=== PATIENT | male | born 1985 | race Caucasian/White ===

== ENCOUNTER 2022-03-29 11:21 | Day surgery (SDC) | payer OTHER ==
[~2022-03-29] VITALS: Ht 175.3 cm; Wt 86.8 kg
[2022-03-29] MEDS ORDERED: CLIN-250 PO (11:38)
[2022-03-29] MEDS ORDERED: ONDANSETRON 4MG 2ML VIAL IV ONE (12:10)
[2022-03-29] MEDS: MORPHINE 4 MG/ML 1ML VIAL/SYRINGE IV PRN ×2 (12:23→12:58)
[2022-03-29 13:19] LABS: RSV AMPLIFICATION NEGATIVE (NEGATIVE)
[2022-03-29] MEDS ORDERED: MORPHINE 4 MG/ML 1ML VIAL/SYRINGE IV PRN (14:30)
[2022-03-29] MEDS ORDERED: PERI12LIQ SSP (15:25)
[2022-03-29] MEDS ORDERED: HOME MED LIST COMPLETE! XX SCH (15:30)
[2022-03-29] MEDS ORDERED: LIDOCAINE 2% 100MG/5ML SDV (FOR ANES.) As Ordered ONE (15:44)
[2022-03-29] MEDS ORDERED: propofoL 200 MG/20 ML VIAL As Ordered ONE (15:44)
[2022-03-29] MEDS ORDERED: fentaNYL 250 MCG/5 ML INJECTION As Ordered ONE (15:45)
[2022-03-29] MEDS ORDERED: MIDAZOLAM INJ 2MG/2ML VIAL (J2250 PER 1MG) As Ordered ONE (15:45)
[2022-03-29] MEDS ORDERED: BACITRACIN OINTMENT 30GM TUBE As Ordered ONE (15:55)
[2022-03-29] MEDS ORDERED: BUPIVACAINE HCL 0.25% 30ML VIAL As Ordered ONE (15:55)
[2022-03-29] MEDS ORDERED: ceFAZolin 2 GM/D5W 50 ML IV BAG (J0690 PER 500MG) As Ordered ONE (17:06)
[2022-03-29] MEDS ORDERED: ACETAMINOPHEN 1000MG 100ML IV BTL (OFIRMEV) (J0131 PER 10MG) As Ordered ONE (17:35)
[2022-03-29] MEDS ORDERED: dexameTHASONE 4 MG/ML 1ML VIAL (J1100 PER 1MG) As Ordered ONE (17:35)
[2022-03-29] MEDS ORDERED: ONDANSETRON 4MG 2ML VIAL As Ordered ONE (17:35)
[2022-03-29] MEDS ORDERED: KETOROLAC 60MG 2ML VIAL As Ordered ONE (17:35)
[2022-03-29] MEDS ORDERED: LR 1,000 ML IV SCH (18:30)
[2022-03-29] MEDS ORDERED: HYDROMORPHONE HCL 0.5 MG/ 0.5 ML SYRINGE (J1170 PER 1) IV PRN (18:30)
[2022-03-29] MEDS ORDERED: ONDANSETRON 4MG 2ML VIAL IV PRN (18:30)
[2022-03-29] MEDS: oxyCODONE 5MG TAB PO PRN ×2 (18:49→19:20)
[2022-03-29] MEDS: fentaNYL 100 MCG/2 ML INJECTION IV PRN ×4 (18:49→19:09)
[2022-03-29] MEDS ORDERED: PERC5TAB12 PO (18:51)
[2022-03-29 19:35] VITALS: BP 137/80
== END 2022-03-29 19:45 | disposition home or self-care (01) ==
LOC: M ED 11:21 → M SDC 16:25
PROVIDERS: ATTEND Orthopaedic Surgery Hand Surgery
DX: S52.571A Other intraarticular fracture of lower end of right radius, initial encounter for closed fracture (principal); W10.8XXA Fall (on) (from) other stairs and steps, initial encounter; Y92.008 Other place in unspecified non-institutional (private) residence as the place of occurrence of the external cause; Y93.9 Activity, unspecified; Y99.9 Unspecified external cause status
CPT/HCPCS: 25609; 73110; 76000; 87631; 96374; 96375; 96376; 99285; C1713; J0131; J0690; J1100; J1170; J1885; J2250; J2270; J2405; J3010

== ENCOUNTER → 2022-04-09 | Outpatient (CLI) | payer OTHER ==
[~2022-04-09] MED LIST: CLIN-250 PO; PERC5TAB12 PO; PERI12LIQ SSP
== END ==
LOC: M SOG 10:39
PROVIDERS: ATTEND Physician Assistant
DX: Z47.89 Encounter for other orthopedic aftercare (principal)

== ENCOUNTER → 2022-05-07 | Outpatient (CLI) | payer OTHER | LOC: M SOG 13:20 | PROVIDERS: ATTEND Physician Assistant | DX: S52.571D Other intraarticular fracture of lower end of right radius, subsequent encounter for closed fracture with routine healing (principal); W18.30XD Fall on same level, unspecified, subsequent encounter; Y92.009 Unspecified place in unspecified non-institutional (private) residence as the place of occurrence of the external cause ==

== ENCOUNTER 2022-05-12 14:00 | Outpatient (RCR) | payer OTHER | END 2022-05-14 | LOC: M OT 14:00 | PROVIDERS: ATTEND Orthopaedic Surgery Hand Surgery | DX: Z47.89 Encounter for other orthopedic aftercare (principal) ==